=== PATIENT | female | born 1955 | race Caucasian/White ===

== ENCOUNTER 2017-05-10 10:05 | Emergency (ER) | payer MEDICAID, OTHER ==
[2017-05-10] MEDS: KETOROLAC 30 MG INJ IM (11:28)
== END 2017-05-10 12:54 | disposition home or self-care (01) ==
LOC: FTE 10:05
DX: R51 Headache (principal); R07.89 Other chest pain; M54.2 Cervicalgia
CPT/HCPCS: 70450; 71110; 72125; 96372; 99285-25